=== PATIENT | female | born 1950 | race Caucasian/White ===

== ENCOUNTER → 2017-10-21 09:36 | Outpatient (CLI) | payer MEDICARE, OTHER, SELFPAY ==
[2017-10-21 12:29] LABS: Anion Gap 8 (5-15); BUN 5 mg/dL (7-18); BUN/Creat Ratio 11.8 RATIO (10-20); Chloride 100 mmol/L (98-107); Cholesterol 193 mg/dL (200); Creatinine, Serum 0.42 mg/dL (0.55-1.02); EST Glomerular Filtration Rate 158 mL/min (>60); Est Glom Filt Rate - Afr Amer 191 mL/min (>60); Glucose 89 mg/dL (70-110); High Density Lipoprotein 104 mg/dL; Potassium 3.7 mmol/L (3.5-5.1); Sodium Level 136 mmol/L (136-145); Triglycerides 54 mg/dL; Very Low Density Lipoprotein 11 mg/dL (5-40)
== END ==
PROVIDERS: Family Provider Family Medicine; PCP Family Medicine; Visit Provider Family Medicine
DX: I10 Essential (primary) hypertension (principal); E78.00 Pure hypercholesterolemia, unspecified
CPT/HCPCS: 36415; 80048; 80061

== ENCOUNTER → 2018-02-27 16:23 | Outpatient (CLI) | payer MEDICARE, OTHER, SELFPAY ==
--- NOTE | 2018-02-27 16:23 | DT_ITS ---
This patient was seen during an EMR downtime February 20, 2018 - February 27, 2018. This patient may have a combination of paper and electronic documentation or all paper documentation. All documentation is viewable within the e-chart portion of [employer] for each patient visit.
--- NOTE | 2018-02-27 16:30 | RAD_ITS ---
STUDY: X-RAY - LEFT SHOULDER REASON FOR EXAM: Female, 67 years old. Left shoulder pain 4 days after fall. TECHNIQUE: 4 view(s) of the shoulder. COMPARISON: None. FINDINGS: Normal glenohumeral articulation. Normal acromioclavicular joint. Normal acromion. There is a mildly displaced fracture of the distal metadiaphysis of the clavicle. Normal humeral head and visualized proximal humerus. The soft tissue structures about the shoulder itself are unremarkable. There are atherosclerotic calcifications in the vascular discharge, bilateral subclavian arteries, and proximal left brachial artery. Normal visualized pulmonary apex. RAD/Shoulder min 2 Views IMPRESSION: Mildly displaced fracture of the distal left clavicle. Electronically Signed: Arnel Miller MD at 16:50 EDT , Service support ,
== END ==
PROVIDERS: Family Provider Family Medicine; PCP Family Medicine; Visit Provider Family Medicine
DX: S42.032A Displaced fracture of lateral end of left clavicle, initial encounter for closed fracture (principal); W19.XXXA Unspecified fall, initial encounter; Y93.9 Activity, unspecified; Y92.9 Unspecified place or not applicable
CPT/HCPCS: 73030

== ENCOUNTER → 2019-11-28 09:08 | Outpatient (CLI) | payer MEDICARE, OTHER, SELFPAY ==
[2019-11-28 10:14] LABS: Hematocrit 40.1 % (37-47); Hemoglobin 13.7 g/dL (12.0-15.0); Mean Corp Hgb Conc 34.2 g/dL (32-36); Mean Corpuscular Hgb 30.7 pg (27.0-32.0); Mean Corpuscular Volume 89.9 fL (81-99); Mean Platelet Vol. 11.8 fl (6.2-12.0); Platelet Count 311 K/mm3 (150-450); RBC Distribution Width CV 12.1 % (11.6-14.6); RBC Distribution Width SD 39.7 fl (35.1-43.9); Red Blood Count 4.46 M/mm3 (4.2-5.4)
[2019-11-28 10:32] LABS: ALB/GLOB Ratio 1.1 RATIO (0.9-2.4); AST(SGOT) 21 U/L (15-37); Alanine Aminotransfer ALT/SGPT 20 U/L (13-56); Albumin, Serum 3.7 g/dL (3.2-5.0); Alkaline Phosphatase 79 U/L (45-117); Anion Gap 7 (5-15); BUN 5 mg/dL (7-18); BUN/Creat Ratio 13.4 RATIO (10-20); Calcium,Total 9.2 mg/dL (8.5-10.1); Chloride 104 mmol/L (98-107); Cholesterol 141 mg/dL (200); Creatinine, Serum 0.37 mg/dL (0.55-1.02); EST Glomerular Filtration Rate 181 mL/min (>60); Est Glom Filt Rate - Afr Amer 219 mL/min (>60); Globulin 3.3 g/dL (2.2-4.2); Glucose 90 mg/dL (74-106); High Density Lipoprotein 65 mg/dL; Potassium 3.3 mmol/L (3.5-5.1); Sodium Level 139 mmol/L (136-145); Triglycerides 55 mg/dL; Very Low Density Lipoprotein 11 mg/dL (5-40)
== END ==
PROVIDERS: PCP Family Medicine; Referring Provider Family Medicine; Visit Provider Family Medicine
DX: I10 Essential (primary) hypertension (principal); F10.10 Alcohol abuse, uncomplicated
CPT/HCPCS: 36415; 80053; 80061; 85027

== ENCOUNTER 2020-11-25 08:06 | Outpatient (RCR) | payer MEDICARE, OTHER, SELFPAY ==
[2020-11-25] MEDS: COVID-19 VACC, MRNA(PFIZER)/PF 30 MCG/0.3 ML SYRINGE IM (10:56)
[2020-12-16] MEDS: COVID-19 VACC, MRNA(PFIZER)/PF 30 MCG/0.3 ML SYRINGE IM (10:44)
== END 2021-02-24 23:59 ==
LOC: IMMUN 08:06
PROVIDERS: PCP Family Medicine; Visit Provider Family Medicine
DX: Z23 Encounter for immunization (principal)
CPT/HCPCS: 0001A; 0002A; 91300